=== PATIENT | female | born 1970 | race Caucasian/White ===

== ENCOUNTER → 2019-06-24 | Outpatient (CLI) | payer MEDICAID ==
[2019-06-24 11:26] LABS: BASOPHILS % (AUTO) 1 % (0-10); EOSINOPHILS # (AUTO) 0.2 10^3/uL (0.0-0.3); EOSINOPHILS % (AUTO) 3 % (0-10); HEMATOCRIT 41 % (35-52); HEMOGLOBIN 13.7 G/DL (11.5-16.0); LYMPHOCYTES # (AUTO) 2.2 X 10^3 (1.0-4.0); LYMPHOCYTES % (AUTO) 29 % (12-44); MEAN CORPUSCULAR HEMOGLOBIN 30 PG (25-34); MEAN CORPUSCULAR HGB CONC 33 G/DL (32-36); MEAN CORPUSCULAR VOLUME 89 FL (80-99); MEAN PLATELET VOLUME 9.4 FL (7.4-10.4); MONOCYTES # (AUTO) 0.6 X 10^3 (0.0-1.0); MONOCYTES % (AUTO) 8 % (0-12); NEUTROPHILS # (AUTO) 4.7 X 10^3 (1.8-7.8); NEUTROPHILS % (AUTO) 60 % (42-75); PLATELET COUNT 347 10^3/uL (130-400); RED CELL DISTRIBUTION WIDTH 14.4 % (10.0-14.5); WHITE BLOOD COUNT 7.9 10^3/uL (4.3-11.0)
[2019-06-24 11:42] LABS: ALBUMIN 4.4 GM/DL (3.2-4.5); BILIRUBIN,TOTAL 0.4 MG/DL (0.1-1.0); CALCIUM 9.4 MG/DL (8.5-10.1); CREATININE SERUM 0.99 MG/DL (0.60-1.30); POTASSIUM 4.3 MMOL/L (3.6-5.0); TOTAL PROTEIN 7.2 GM/DL (6.4-8.2)
--- NOTE | 2019-06-24 12:12 | Diagnostic Imaging Report ---
Indication: Tachycardia. Time of exam: 12:05 PM No prior studies are available for comparison. The heart size is normal. The pulmonary vascularity is unremarkable. The lungs are clear. No infiltrate, effusion or pneumothorax is detected. Impression: No acute cardiopulmonary process is detected. Dictated by: Dictated on workstation # [id number]
== END ==
LOC: CARD 11:08
PROVIDERS: ATTEND Nurse Practitioner Family
DX: R00.0 Tachycardia, unspecified (principal); R07.9 Chest pain, unspecified; E78.5 Hyperlipidemia, unspecified; R60.0 Localized edema; R53.82 Chronic fatigue, unspecified; Z79.02 Long term (current) use of antithrombotics/antiplatelets; Z95.5 Presence of coronary angioplasty implant and graft; Z79.899 Other long term (current) drug therapy
CPT/HCPCS: 36415; 71047; 80053; 80061; 84443; 85025; 86663; 86664; 86665

== ENCOUNTER → 2020-01-20 | Outpatient (CLI) | payer MEDICAID ==
[~2020-01-20] VITALS: Ht 157 cm; Wt 116.0 kg
[~2020-01-20] MED LIST: REGADENOSON 0.4 MG/5 ML SYR (LEXISCAN) IV ONE
[2020-01-20] MEDS: CATHETER FLUSH 10 ML SYR IV PRN ×2 (12:31→13:18)
[2020-01-20 13:16] VITALS: BP 143/71
--- NOTE | 2020-01-21 19:24 | STRESS TEST ---
DATE OF SERVICE: 01/20/2020 RESTING AND POST REGADENOSON TECHNETIUM-99M TETROFOSMIN SPECT CT IMAGING ORDERING PHYSICIAN: Lamar Husain APRN OTHER PHYSICIAN: Dr. Durant. CLINICAL DIAGNOSIS: Coronary artery disease. Baseline images were carried out after injection of 9.79 mCi of technetium-99m Tetrofosmin. This was followed by 0.4 mg regadenoson and 29.7 mCi of technetium-99m Tetrofosmin for stress imaging. The electrocardiogram showed sinus tachycardia at baseline. The electrocardiogram did not change significantly with regadenoson infusion. The patient tolerated the procedure well. Review of images at rest and following stress does not indicate any significant perfusion defects consistent with myocardial ischemia or infarction. Gated images show normal global left ventricular systolic function with normal regional wall motion. Left ventricular ejection fraction is calculated to be 76%. Left ventricular end diastolic volume is 31 mL. TID is absent (1). CONCLUSIONS: 1. No evidence of any significant myocardial ischemia or infarction study. 2. Normal regional wall motion. 3. Normal global left ventricular systolic function with a calculated ejection fraction 76%. Job ID: [id number] DocumentID: [id number] Dictated Date: 01/21/2020 16:10:37 [employer] Date: 01/21/2020 19:24:33 Dictated By: KIMBERLEE DURANT MD, MA, FACP, FACC,
== END ==
LOC: CARD 11:32
PROVIDERS: ATTEND Nurse Practitioner Family
DX: I25.10 Atherosclerotic heart disease of native coronary artery without angina pectoris (principal); I65.23 Occlusion and stenosis of bilateral carotid arteries; E78.2 Mixed hyperlipidemia; R29.818 Other symptoms and signs involving the nervous system
CPT/HCPCS: 78452; 93017; 93306; A9502

== ENCOUNTER → 2020-02-09 | Outpatient (CLI) | payer MEDICAID ==
[~2020-02-09] MED LIST changes: +ACET-2267 PO; +ACHD5005 PO; +ASPI-1238 PO; +ASPI-892 PO; +ASPI-999 PO; +ASPI81TA19 GT; +ATOR20TA66 PO; +BUPR200T2 PO; +BUSP10TA95 PO; +CALC-921 PO; +CARV6.25 PO; +CHOL500049 PO; +CITA20TA4 PO; +CLON0.5T3 PO; +CLOP75TA28 PO; +CLOP75TA69 PO; +CLPD75T PO; +EST30C VG; +GABA-486 PO; +IBUP-30 PO; +METF-865 PO; +METO-333 PO; +METO25TA2 PO; +NITR0.4T SL; +ONDA4TAB11 PO; +PANT40TA2 PO; +PANT40TA52 PO; +PARO40TA3 PO; +PRAV20TA3 PO; +PRAV40TA2 PO; -REGADENOSON 0.4 MG/5 ML SYR (LEXISCAN) IV ONE; +SPIR50TA PO; +SUCR1TAB36 PO
--- NOTE | 2020-02-09 16:38 | Diagnostic Imaging Report ---
Indication: Shortness of breath PA and lateral chest Heart size and pulmonary vascularity are normal. Lungs are clear. There are no effusions or pneumothoraces. IMPRESSION: Negative chest Dictated by: Dictated on workstation # [id number]
== END ==
LOC: RAD 16:09
PROVIDERS: ATTEND Internal Medicine Critical Care Medicine
DX: R06.00 Dyspnea, unspecified (principal); F17.210 Nicotine dependence, cigarettes, uncomplicated
CPT/HCPCS: 71046